=== PATIENT | female | born 1975 | race Caucasian/White ===

== ENCOUNTER 2020-07-16 13:39 | Observation (INO) ==
[2020-07-16] MEDS ORDERED: ASPIRIN 325 MG TABLET PO STA (13:53)
[2020-07-16] MEDS ORDERED: NITROGLYCERIN SL 0.4 MG TABLET SL PRN (13:53)
[2020-07-16 14:11] LABS: Basophils % 0.2 % (0.0-0.8); Eosinophils % 0.3 % (0.00-10.9); Hematocrit 38.4 VOL% (35.7-47.0); Hemoglobin 12.7 GM/DL (12.0-16.0); Immature Granulocytes % 0.6 %; Immature Granulocytes Absolute 0.06 #; Lymphocytes # 1.2 10*3/uL (1.4-4.0); Lymphocytes % 12.6 % (21.3-54.2); Mean Corpuscular HGB Conc 33.1 GM/DL (32-36); Mean Corpuscular Volume 92.3 FL (87-102); Mean Platelet Volume 9.1 FL (9.6-12.0); Monocytes % 3.1 % (1.7-12.7); Neutrophils % 83.2 % (38.7-73.9); Platelet Count 310 T/CUMM (130-400); Red Blood Count 4.16 MC/CUMM (3.8-5.5); Red Cell Distribution Width 13.2 % (9.3-17.3); White Blood Count 9.3 T/CUMM (4-12)
[2020-07-16 14:27] LABS: Calcium 8.7 MG/DL (8.5-10.1); Osmolality,Calculated 282.4 MOS/KG (273-304); PT Patient Result 10.7 SECS (9.8-11.9); Partial Thromboplastin Time 24.2 SECS (23.9-33.8)
[2020-07-16] MEDS ORDERED: ONDANSETRON 4 MG/2 ML VIAL IV PRN (15:57)
[2020-07-16] MEDS ORDERED: MORPHINE 4 MG/1 ML VIAL IV PRN (15:57)
[2020-07-16] MEDS ORDERED: MAGNESIUM SULF RIDER 4 GM in PREMIX 1 EACH IV PRN (15:57)
[2020-07-16] MEDS ORDERED: MAGNESIUM SULF RIDER 2 GM in PREMIX 1 EACH IV PRN (15:57)
[2020-07-16] MEDS: ENOXAPARIN 80 MG/0.8 ML SYRINGE SUBCUT SCH (18:16)
[2020-07-16] MEDS: SODIUM CHLORIDE 0.45% 1,000 ML IV SCH (18:18)
[2020-07-16 19:31] LABS: Barbiturates Screen,Urine Negative (Negative); Benzodiazepines Screen,Urine Negative (Negative); Cannabinoid Screen,Urine Negative (Negative); Opiate Screen,Urine Positive (Negative); Phencyclidine Screen,Urine Negative (Negative)
[2020-07-16] MEDS: DOXYCYCLINE HYCLATE 100 MG CAPSULE PO SCH (21:51)
[2020-07-17] MEDS: SODIUM CHLORIDE 0.45% 1,000 ML IV SCH ×3 (03:39→17:50)
[2020-07-17] MEDS: ENOXAPARIN 80 MG/0.8 ML SYRINGE SUBCUT SCH ×2 (03:41→17:49)
[2020-07-17 05:24] LABS: Basophils # 0.1 10*3/uL (0.0-0.2); Basophils % 0.5 % (0.0-0.8); Eosinophils # 0.6 10*3/uL (0.0-0.87); Eosinophils % 5.6 % (0.00-10.9); Hematocrit 33.5 VOL% (35.7-47.0); Hemoglobin 11.1 GM/DL (12.0-16.0); Immature Granulocytes % 0.2 %; Immature Granulocytes Absolute 0.02 #; Lymphocytes # 4.5 10*3/uL (1.4-4.0); Lymphocytes % 44.5 % (21.3-54.2); Mean Corpuscular HGB Conc 33.1 GM/DL (32-36); Mean Corpuscular Volume 92.3 FL (87-102); Mean Platelet Volume 9.1 FL (9.6-12.0); Monocytes % 7.5 % (1.7-12.7); Neutrophils % 41.7 % (38.7-73.9); Platelet Count 240 T/CUMM (130-400); Red Blood Count 3.63 MC/CUMM (3.8-5.5); Red Cell Distribution Width 13.2 % (9.3-17.3); White Blood Count 10.2 T/CUMM (4-12)
[2020-07-17 05:42] LABS: Calcium 8.1 MG/DL (8.5-10.1); Osmolality,Calculated 273.5 MOS/KG (273-304); Risk Ratio 2.83; VLDL CHOLESTEROL 28.4 MG/DL
[2020-07-17 06:00] LABS: Hypochromasia Slight; Microcytosis Slight; Platelet Estimate Normal; Target Cells Slight
[2020-07-17] MEDS ORDERED: PANTOPRAZOLE 40 MG TABLET PO SCH (09:00)
[2020-07-17] MEDS ORDERED: ASPIRIN 325 MG TABLET PO SCH (09:00)
[2020-07-17] MEDS ORDERED: ESCITALOPRAM 10 MG TABLET PO SCH (09:00)
[2020-07-17] MEDS ORDERED: buPROPion XL 150 MG TABLET PO SCH (09:00)
[2020-07-17] MEDS: DOXYCYCLINE HYCLATE 100 MG CAPSULE PO SCH (10:55)
[2020-07-17] MEDS ORDERED: diphenhydrAMINE 50 MG/1 ML VIAL IV STA (11:26)
[2020-07-17] MEDS ORDERED: HYDROCORTISONE 100 MG VIAL IV STA (11:28)
[2020-07-17] MEDS ORDERED: FAMOTIDINE 20 MG/2 ML VIAL IV STA (11:30)
[2020-07-17] MEDS ORDERED: POTASSIUM CHLORIDE 20 MEQ TABLET PO ONE (13:38)
[2020-07-17 16:21] VITALS: BP 134/75
== END 2020-07-17 17:50 | disposition home or self-care (01) ==
LOC: EDUNIT# → EDBD → N.EDINP 13:39 → N.ED 13:39 → N.TELEN 17:23
PROVIDERS: ADMIT Internal Medicine Cardiovascular Disease; ATTEND Internal Medicine Cardiovascular Disease